=== PATIENT | female | born 1995 | race Hispanic/Latino ===

== ENCOUNTER 2022-09-22 18:31 | Emergency (ER) | payer SELFPAY ==
[~2022-09-22] VITALS: Ht 149.9 cm; Wt 46.3 kg
[2022-09-22] MEDS ORDERED: CLEOCIN HCL150 MG PO (18:51)
[2022-09-22] MEDS ORDERED: AMOX TR-K CLV1 EAC2 PO (18:51)
== END 2022-09-22 19:00 | disposition home or self-care (01) ==
LOC: ER 18:55
DX: L02.415 Cutaneous abscess of right lower limb (principal); F41.9 Anxiety disorder, unspecified
CPT/HCPCS: 99282

== ENCOUNTER 2023-10-02 08:43 | Emergency (ER) | payer SELFPAY ==
[~2023-10-02] VITALS: Ht 149.9 cm; Wt 68.0 kg
[~2023-10-02 08:43] MED LIST: AMOX TR-K CLV1 EAC2 PO; CLEOCIN HCL150 MG PO
[2023-10-02 08:45] VITALS: O2SAT 99
[2023-10-02] MEDS ORDERED: CLINDAMYCIN HC300 MG PO (09:50)
== END 2023-10-02 10:06 | disposition home or self-care (01) ==
LOC: FSED 09:06
DX: S30.814A Abrasion of vagina and vulva, initial encounter (principal); F41.9 Anxiety disorder, unspecified; J45.909 Unspecified asthma, uncomplicated
CPT/HCPCS: 81003; 81025; 99281

== ENCOUNTER 2024-01-10 07:15 | Emergency (ER) | payer BC, OTHER ==
[~2024-01-10] VITALS: Ht 149.9 cm; Wt 68.0 kg
[~2024-01-10 07:15] MED LIST changes: +CLINDAMYCIN HC300 MG PO
[2024-01-10 07:19] VITALS: PULSE 86; RESP 15; TEMP 97.8; O2SAT 100
[2024-01-10] MEDS: TETANUS/DIPHTHERIA TOX ADULT 0.5 ML SYR IM ONE (07:34)
[2024-01-10] MEDS: MUPIROCIN 2% OINT 22 GM TUBE TOP ONE (08:16)
[2024-01-10] MEDS ORDERED: BACTRIM DS TAB1 EACH PO (08:23)
[2024-01-10] MEDS ORDERED: LEVOFLOXACIN500 MG PO (08:23)
== END 2024-01-10 08:30 | disposition home or self-care (01) ==
LOC: ER 07:20
DX: S91.332A Puncture wound without foreign body, left foot, initial encounter (principal); W45.0XXA Nail entering through skin, initial encounter; Y93.01 Activity, walking, marching and hiking; Y92.89 Other specified places as the place of occurrence of the external cause; J45.909 Unspecified asthma, uncomplicated; F41.9 Anxiety disorder, unspecified
CPT/HCPCS: 90471; 90714; 99284

== ENCOUNTER 2024-08-14 10:19 | Emergency (ER) | payer BC ==
[~2024-08-14] VITALS: Ht 149.9 cm; Wt 57.2 kg
[~2024-08-14 10:19] MED LIST changes: +BACTRIM DS TAB1 EACH PO; +LEVOFLOXACIN500 MG PO
[2024-08-14] MEDS ORDERED: HYDROCODONE/APAP 5MG-325MG TAB ONE (10:57)
[2024-08-14] MEDS: HYDROCODONE/APAP 5MG-325MG TAB PO ONE (11:04)
[2024-08-14 13:03] VITALS: PULSE 70; RESP 16; TEMP 98; O2SAT 100
== END 2024-08-14 13:06 | disposition home or self-care (01) ==
LOC: ER 11:43
DX: S93.492A Sprain of other ligament of left ankle, initial encounter (principal); X50.1XXA Overexertion from prolonged static or awkward postures, initial encounter; Y93.02 Activity, running; Y92.89 Other specified places as the place of occurrence of the external cause; J45.909 Unspecified asthma, uncomplicated; F41.9 Anxiety disorder, unspecified
CPT/HCPCS: 99283